=== PATIENT | female | born 1980 | race African-American/Black ===

== ENCOUNTER → 2021-05-20 16:41 | Outpatient (CLI) | payer OTHER, SELFPAY ==
--- NOTE | ~2021-05-20 | MM_ITS ---
EXAMINATION: MM screening jose enrique BI w jenni HISTORY: Screening TECHNIQUE: Craniocaudal and mediolateral oblique 3-D tomosynthesis images were obtained and synthetic 2-D images were generated. CAD analysis was submitted and interpreted. COMPARISON: No prior mammogram is available for comparison at this institution. BREAST PARENCHYMAL COMPOSITION: There are scattered areas of fibroglandular density. FINDINGS: There is focal asymmetry in the periareolar soft tissues of the right breast. There are no suspicious masses, calcifications or architectural distortion in the left breast to suggest malignanc y. IMPRESSION: 1. Right breast asymmetries. 2. Comparison to previous outside mammograms recommended. BI-RADS Category 0: Incomplete: Needs additional imaging evaluation. Reviewed, dictated and finalized at location A.
== END ==
DX: Z12.31 Encounter for screening mammogram for malignant neoplasm of breast (principal); R92.8 Other abnormal and inconclusive findings on diagnostic imaging of breast
CPT/HCPCS: 77063; 77067

== ENCOUNTER → 2021-06-22 08:51 | Outpatient (CLI) | payer OTHER, SELFPAY ==
--- NOTE | ~2021-06-22 | MM_ITS ---
EXAMINATION: MM diagnostic jose enrique RT w jenni HISTORY: Focal asymmetry in periareolar soft tissues of right breast reported on 05/16/2021 bilateral screening mammogram TECHNIQUE: Additional 3-D tomosynthesis images of the right breast were performed and synthetic 2-D i mages were generated. CAD analysis was submitted and interpreted. High resolution subareolar right [facility] ultrasound was performed. COMPARISON: 05/20/2021 bilateral digital screening mammogram FINDINGS: MAMMOGRAPHIC FINDINGS: There is nonspecific asymmetric increased density in the subareolar area of the right breast. No prio r mammograms are available for comparison. ULTRASOUND: In the 10-11:00 subareolar area there is a parallel circumscribed hypoechoic 5.7 x 4.1 x 5.6 mm solid lesion without internal vascularity or posterior shadowing, likely benign. No suspicious mass or shadowing is evident. IMPRESSION: 1. Probably benign finding, 10-11:00 subareolar area 2. 6 month diagnostic right mammogram and targeted 10-11:00 subareolar right breast ultrasound follow -up is recommended BI-RADS category 3, probably benign findings. Reviewed, dictated and finalized at location A. IMPRESSION: 1. Probably benign finding, 10-11:00 subareolar area 2. 6 month diagnostic right mammogram and targeted 10-11:00 subareolar right [facility] ultrasound follow-up is recommended BI-RADS category 3, probably benign findings.
--- NOTE | ~2021-06-22 | US_ITS ---
US breast RT limited DATE: 06/22/2021 10:25 Please refer to combined right diagnostic and limited right breast ultrasound report Reviewed, dictated and finalized at [facility]. Reviewed, dictated and finalized at location A.
== END ==
DX: N63.41 Unspecified lump in right breast, subareolar (principal)
CPT/HCPCS: 76642; 77061; 77065; G0279

== ENCOUNTER 2021-12-21 08:21 | Outpatient (CLI) | payer BC, OTHER, SELFPAY ==
--- NOTE | ~2021-12-21 | MM_ITS ---
EXAMINATION: MM diagnostic jose enrique RT w jenni HISTORY: Follow-up right breast asymmetry TECHNIQUE: Additional 3-D tomosynthesis images of the right breast were performed and synthetic 2-D i mages were generated. CAD analysis was submitted and interpreted. High resolution Limited right breas t ultrasound was performed. COMPARISON: 05/20/2021 BREAST PARENCHYMAL COMPOSITION: Breast composed of scattered areas of fibroglandular density FINDINGS: MAMMOGRAPHIC FINDINGS: The right breast is stable. No new masses, calcifications or architectural distortion. Focal periareo lar asymmetry is unchanged. ULTRASOUND: Limited right breast ultrasound: At 10-11:00 position of the right breast near the [place]ola there is a stable 12 x 4 x 4 mm oval hypoech oic circumscribed mass without internal vascularity or posterior features. Parallel orientation. This mass measured 11 x 6 x 5 mm on prior examination. IMPRESSION: 1. No significant change to probable benign right breast mass in the subareolar location at the 10-11 :00 position. 2. Recommend 6 month follow-up limited right breast ultrasound BI-RADS category 3, probably benign findings. Reviewed, dictated and finalized at location A. IMPRESSION: 1. No significant change to probable benign right breast mass in the subareolar location at the 10-11:00 position. 2. Recommend 6 month follow-up limited right breast ultrasound BI-RADS category 3, probably benign findings.
--- NOTE | ~2021-12-21 | US_ITS ---
Please refer to diagnostic mammogram report dated 12/21/2021 for details. Reviewed, dictated and finalized at location A.
== END 2021-12-21 08:22 ==
DX: R92.8 Other abnormal and inconclusive findings on diagnostic imaging of breast (principal)
CPT/HCPCS: 76642; 77061; 77065; G0279

== ENCOUNTER → 2023-03-10 08:00 | Outpatient (CLI) | payer BC, OTHER, SELFPAY ==
--- NOTE | ~2023-03-10 | MM_ITS ---
EXAMINATION: MM screening jose enrique BI w jenni HISTORY: Screening mammogram TECHNIQUE: Craniocaudal and mediolateral oblique 3-D tomosynthesis images were obtained and synthetic 2-D images were generated. CAD analysis was submitted and interpreted. COMPARISON: December 21, 2021 and June 22, 2021 diagnostic right mammogram and limited right breast u ltrasound examination May 20, 2021 bilateral screening mammogram BREAST PARENCHYMAL COMPOSITION: There are scattered areas of fibroglandular density. FINDINGS: There is no evidence of suspicious mass, calcification, or architectural distortion to sugg est malignancy in either breast. There has been no suspicious interval change. IMPRESSION: 1. No mammographic evidence of malignancy. 2. Recommend routine screening mammography in one year. BI-RADS Category 1: Negative Reviewed, dictated and finalized at location A.
== END ==
DX: Z12.31 Encounter for screening mammogram for malignant neoplasm of breast (principal)
CPT/HCPCS: 77063; 77067

== ENCOUNTER 2024-08-02 07:49 | Outpatient (CLI) | payer BC, OTHER, SELFPAY ==
--- NOTE | ~2024-08-02 | MM_ITS ---
EXAMINATION: MM screening jose enrique BI w jenni HISTORY: Screening TECHNIQUE: Craniocaudal and mediolateral oblique 3-D tomosynthesis images were obtained and synthetic 2-D images were generated. CAD analysis was submitted and interpreted. COMPARISON: Comparison to multiple prior studies sequentially, with oldest reviewed study dated 05/20. BREAST PARENCHYMAL COMPOSITION: Not dense: There are scattered areas of fibroglandular density. FINDINGS: There is no evidence of suspicious mass, calcification, or architectural distortion to sugg est malignancy in either breast. There has been no suspicious interval change. IMPRESSION: 1. No mammographic evidence of malignancy. 2. Recommend routine screening mammography in one year. BI-RADS Category 1: Negative Reviewed, dictated and finalized at location B. [employer]
== END 2024-08-02 07:50 | disposition home or self-care (01) ==
LOC: MICIMG 07:50
DX: Z12.31 Encounter for screening mammogram for malignant neoplasm of breast (principal)
CPT/HCPCS: 77063; 77067